=== PATIENT | male | born 1985 | race Caucasian/White ===

== ENCOUNTER 2023-12-21 14:27 | Outpatient (CLI) | payer OTHER | END 2023-12-21 14:28 | disposition critical access hospital (66) | LOC: EMS 14:27 | DX: R07.89 Other chest pain (principal) | CPT/HCPCS: A0425; A0429 ==

== ENCOUNTER 2023-12-21 14:51 | Emergency (ER) | payer OTHER ==
[2023-12-21 15:07] VITALS: BP 147/107
--- NOTE | 2023-12-21 15:14 | ED Physician Documentation ---
PD HPI CHEST PAIN - Stated complaint Stated Complaint: CP - Chief complaint Chief Complaint: Cardiac - History obtained from History obtained from: Patient - Additional information Additional information: 38-year-old gentleman with history of depression, otherwise generally medically healthy developed chest pain last night. The location is in the sternal and just to the left of the sternal area and it is worse if he rotates his body to the left or takes a deep breath. He is not short of breath. There was no injury. No recent travel, pedal edema, or calf pain. No history of DVT or PE. No family history of heart disease. PD PAST MEDICAL HISTORY - Past Medical History Past Medical History: Yes Cardiovascular: None Respiratory: None Neuro: None Endocrine/Autoimmune: None GI: None : None HEENT: None Psych: Depression Musculoskeletal: None Derm: None - Past Surgical History Past Surgical History: Yes HEENT: Tonsil/Adenoidectomy - Present Medications Home Medications: Ambulatory Orders Medication Instructions Recorded Confirmed Home Medications Unobtainable 12/21/23 12/21/23 [HOME MEDICATIONS UNOBTAINABLE] - Allergies Allergies/Adverse Reactions: Allergies Allergy/AdvReac Type Severity Reaction Status Date / Time Penicillins Allergy Unknown Unknown Verified 12/21/23 15:00 - Social History Does the pt smoke?: No Smoking Status: Never smoker Does the pt drink ETOH?: No Does the pt have substance abuse?: No - Immunizations Immunizations are current?: Yes - POLST Patient has POLST: No PD ED PE NORMAL - Vitals Vital signs reviewed: Yes - General General: Alert and oriented X 3, No acute distress - HEENT HEENT: PERRL, EOMI - Neck Neck: Supple, no meningeal sign, No bony TTP - Cardiac Cardiac: RRR, No murmur, Other (Chest pain is reproducible with left costochondral palpation.) - Respiratory Respiratory: No respiratory distress, Clear bilaterally - Abdomen Abdomen: Non tender - Extremities Extremities: No edema, No calf tenderness / cord - Neuro Neuro: Alert and oriented X 3, Normal speech Results - Vitals Vitals: Vital Signs - 24 hr 12/21/23 12/21/23 14:57 15:51 Temperature 36.4 C L Heart Rate 79 Respiratory 16 17 Rate Blood Pressure 147/107 H O2 Saturation 99 Oxygen O2 Source Room air - EKG (time done) 1513 EKG releavant findings:: EKG personally interpreted by author of this note. Relevant findings are: Rate: Rate (enter#) (76) Rhythm: NSR [place]: Normal Intervals: Normal DC QRS: LVH (poss) Ischemia: Normal ST segments - Labs Labs: Laboratory Tests 12/21/23 12/21/23 15:24 15:24 WBC 7.7 RBC 4.23 L Hgb 12.5 L Hct 38.2 L MCV 90.3 MCH 29.6 MCHC 32.7 RDW 12.3 Plt Count 212 MPV 10.1 Neut # (Auto) 4.5 Lymph # (Auto) 2.6 [place] # (Auto) 0.5 Eos # (Auto) 0.1 Baso # (Auto) 0.0 Absolute Nucleated RBC 0.00 Nucleated RBC % 0.0 Sodium 139 Potassium 4.1 Chloride 104 Carbon Dioxide 31 Anion Gap 4.0 L BUN 16 Creatinine 0.9 Estimated GFR (MDRD) 94 Glucose 93 Calcium 9.5 Total Bilirubin 0.3 AST 13 ALT 13 Alkaline Phosphatase 68 Troponin I High Sens < 2.3 L Total Protein 6.9 Albumin 4.5 Globulin 2.4 Albumin/Globulin Ratio 1.9 Lipase 16 - Rads (name of study) 1v [id number] Relevant Findings:: Final report received, EMP independent interpretation of test PD Medical Decision Making - ED course Complexity details: reviewed results (CBC showing very mild anemia, CMP normal, troponin normal.) ED course: 38-year-old gentleman with chest pain that certainly seems muscu loskeletal/noncardiac. It is reproducible. His heart score is 0. PERC negative. Nothing in the history or physical to suggest dissection. Computer read of EKG suggest "possible" LVH and this was discussed with patient and follow-up for echo was advised. This would be unrelated to current issue. Departure - Departure Disposition: 01 Home, Self Care Clinical Impression: Chest wall pain Condition: Good Record reviewed to determine appropriate education?: Yes Instructions: ED Strain Chest Wall Comments: Your EKG did not show any signs of acute heart damage or issue, there was a concern that perhaps the left ventricle could be enlarged on this. It is not 100% though, so talk to your doctor about an echocardiogram. That said the other markers we look out for signs of heart attack that would suggest the pain you are having were all negative, and this does seem like muscular pain as opposed to something internal. Forms: PCP List
[2023-12-21 15:29] LABS: BASOPHILS % (AUTO) 0.3 %; EOSINOPHILS # (AUTO) 0.1 10^3/uL (0.0-0.7); EOSINOPHILS % (AUTO) 1.7 %; HCT - HEMATOCRIT 38.2 % (42.0-52.0); HGB - HEMOGLOBIN 12.5 g/dL (14.0-18.0); LYMPHOCYTES # (AUTO) 2.6 10^3/uL (1.5-3.5); MEAN CORPUSCULAR HEMOGLOBIN 29.6 pg (27.0-31.0); MEAN CORPUSCULAR HGB CONC 32.7 g/dL (32.0-36.0); MEAN CORPUSCULAR VOLUME 90.3 fL (80.0-94.0); MEAN PLATELET VOLUME 10.1 fL (7.4-11.4); MONOCYTES # (AUTO) 0.5 10^3/uL (0.0-1.0); MONOCYTES % (AUTO) 6.5 %; NEUTROPHILS # (AUTO) 4.5 10^3/uL (1.5-6.6); NEUTROPHILS % (AUTO) 58.1 %; PLT - PLATELET COUNT 212 10^3/uL (130-450); RED BLOOD COUNT 4.23 10^6/uL (4.70-6.10); RED CELL DISTRIBUTION WIDTH 12.3 % (12.0-15.0); WHITE BLOOD COUNT 7.7 x10^3/uL (4.8-10.8)
--- NOTE | 2023-12-21 15:34 | XRAY Report ---
PROCEDURE: Chest 1V INDICATIONS: Chest Pain TECHNIQUE: One view of the chest was acquired. COMPARISON: None. FINDINGS: Surgical changes and devices: None. Lungs and pleura: No pleural effusions or pneumothorax. Lungs are clear. Mediastinum: Mediastinal contours appear normal. Heart size is normal. Bones and chest wall: No suspicious bony lesions. Overlying soft tissues appear unremarkable. IMPRESSION: No acute cardiopulmonary process. Reviewed by: Andrew Garcia MD on 12/21/2023 3:33 PM PDT Approved by: Andrew Garcia MD on 12/21/2023 3:33 PM PDT Station ID: [id number]
[2023-12-21 15:49] LABS: ALBUMIN 4.5 g/dL (3.2-5.5); ALBUMIN/GLOBULIN RATIO 1.9 (1.0-2.2); ALKALINE PHOSPHATASE 68 IU/L (42-121); ALT ALANINE AMINOTRANSFERASE 13 IU/L (10-60); AST ASPARTATE AMINOTRANSFERASE 13 IU/L (10-42); BILIRUBIN,TOTAL 0.3 mg/dL (0.2-1.0); BUN - BLOOD UREA NITROGEN 16 mg/dL (6-20); CALCIUM 9.5 mg/dL (8.5-10.3); CARBON DIOXIDE - CO2 31 mmol/L (21-32); CHLORIDE 104 mmol/L (101-111); CREATININE 0.9 mg/dL (0.6-1.3); GFR - MDRD 94 (>89); GLUCOSE 93 mg/dL (74-104); LIPASE 16 U/L (11-82); POTASSIUM 4.1 mmol/L (3.5-4.5); SODIUM 139 mmol/L (135-145); TOTAL PROTEIN 6.9 g/dL (6.4-8.9)
[2023-12-21 15:52] LABS: TROPONIN I HIGH SENSITIVITY < 2.3 ng/L (2.3-19.7)
[2023-12-21 16:15] VITALS: O2SAT 98
== END 2023-12-21 16:13 | disposition home or self-care (01) ==
LOC: ED 14:51
DX: R07.89 Other chest pain (principal)
CPT/HCPCS: 36415; 80053; 83690; 84484; 85025; 93005; 99284

== ENCOUNTER 2024-02-22 09:01 | Outpatient (CLI) | payer OTHER | END 2024-02-22 09:02 | disposition home or self-care (01) | LOC: DI 09:01 | PROVIDERS: ATTEND Nurse Practitioner Family | DX: R07.9 Chest pain, unspecified (principal) | CPT/HCPCS: 93307 ==